=== PATIENT | female | born 2000 | race Caucasian/White ===

== ENCOUNTER 2021-12-16 20:22 | Emergency (ER) | payer OTHER | END 2021-12-16 21:44 | disposition home or self-care (01) | LOC: CSHERS 20:22 | DX: O20.9 Hemorrhage in early pregnancy, unspecified (principal); O99.331 Smoking (tobacco) complicating pregnancy, first trimester; F17.210 Nicotine dependence, cigarettes, uncomplicated; Z3A.01 Less than 8 weeks gestation of pregnancy | CPT/HCPCS: 76856 ==

== ENCOUNTER 2022-02-01 18:03 | Emergency (ER) | payer BC, OTHER ==
[2022-02-01 20:27] LABS: #Monocytes 0.6 10x3/uL (0.0-1.1); #Neutrophils 7.8 10x3/uL (1.5-8.4); %Basophils 0.4 % (0.0-2.0); %Eosinophils 0.4 % (0.0-6.0); %Lymphocytes 17.6 % (18.0-47.0); %Monocytes 5.5 % (0.0-10.0); %Neutrophils 75.8 % (40.0-75.0); Hemoglobin 12.7 g/dL (12.0-15.5); Mean Corpuscular HGB CONC 35.1 g/dL (32.0-36.0); Mean Corpuscular Hemoglobin 30.7 pg (27.0-33.0); Mean Corpuscular Volume 87.4 fl (81.6-98.3); Mean Platelet Volume 9.4 fl (7.4-10.4); Platelet Count 197 10x3/uL (150-450); Red Blood Cell (RBC) Count 4.14 10x6/uL (3.90-5.03); White Blood Cell (WBC) Count 10.2 10x3/uL (3.5-10.5)
[2022-02-01 21:02] LABS: Bilirubin Neg (Negative); Blood, Urine 10 (Negative); Clarity Cloudy (Clear); Glucose, Urine (Dipstick) Normal (Negative); Ketone, Urine Negative (Negative); Leukocyte 25 (Negative); Nitrite Negative (Negative); Protein, Urine (Dipstick) 15 mg/dl (Neg-Trace)
[2022-02-01 21:14] LABS: RBC/HPF None Seen HPF (0-3); WBC/HPF 0-3 HPF (0-3)
[2022-02-01 21:15] LABS: Bacteria/HPF None Seen HPF (None Seen)
[2022-02-03 11:22] LABS: Chlamydia by PCR Not Detected (NotDetected); GC by PCR Not Detected (NotDetected)
== END 2022-02-01 21:30 | disposition home or self-care (01) ==
LOC: CSHERS 18:03
DX: O99.891 Other specified diseases and conditions complicating pregnancy (principal); R10.2 Pelvic and perineal pain; O99.331 Smoking (tobacco) complicating pregnancy, first trimester; F17.210 Nicotine dependence, cigarettes, uncomplicated; Z3A.12 12 weeks gestation of pregnancy
CPT/HCPCS: 76856; 81003; 81015; 84702; 85025; 86900; 86901; 87086; 87480; 87491; 87510; 87591; 87660; 93976

== ENCOUNTER 2022-02-07 14:04 | Emergency (ER) | payer OTHER, SELFPAY | END 2022-02-07 19:04 | disposition home or self-care (01) | LOC: CSHERS 14:04 | DX: O20.0 Threatened abortion (principal); O99.331 Smoking (tobacco) complicating pregnancy, first trimester; F17.210 Nicotine dependence, cigarettes, uncomplicated; Z3A.13 13 weeks gestation of pregnancy | CPT/HCPCS: 76856 ==

== ENCOUNTER 2022-02-10 18:19 | Emergency (ER) | payer MEDICAID, SELFPAY | END 2022-02-10 21:19 | disposition home or self-care (01) | LOC: CSHERS 18:19 | DX: O20.0 Threatened abortion (principal); O99.012 Anemia complicating pregnancy, second trimester; O99.332 Smoking (tobacco) complicating pregnancy, second trimester; F17.210 Nicotine dependence, cigarettes, uncomplicated; Z87.19 Personal history of other diseases of the digestive system | CPT/HCPCS: 76856 ==

== ENCOUNTER 2022-06-11 17:43 | Day surgery (SDC) | payer OTHER ==
[2022-06-11] MEDS ORDERED: hydrALAZINE 20 MG/ML VIAL SLOW IVP PRN (18:58)
[2022-06-11 19:08] VITALS: BMI 30.3
[2022-06-11 19:30] LABS: Bilirubin Neg (Negative); Blood, Urine Negative (Negative); Clarity Clear (Clear); Glucose, Urine (Dipstick) Normal (Negative); Ketone, Urine Negative (Negative); Leukocyte 100 (Negative); Nitrite Negative (Negative); Protein, Urine (Dipstick) Negative (Neg-Trace)
[2022-06-11 19:53] LABS: Fetal Membranes Rupture No Membranes Rupture (No Rupture)
[2022-06-11 19:56] LABS: Bacteria/HPF Rare-Few HPF (None Seen); RBC/HPF 0-3 HPF (0-3); Squamous Epithelial 0-3 HPF (0-3)
[2022-06-11] MEDS ORDERED: Lactated Ringer's 1,000 ML IV SCH (20:30)
[2022-06-12] MEDS ORDERED: metroNIDAZOLE 500 MG TAB PO SCH (09:00)
== END 2022-06-11 23:40 | disposition home or self-care (01) ==
LOC: CSHLD/OP 17:43
PROVIDERS: ATTEND Family Medicine
DX: O23.593 Infection of other part of genital tract in pregnancy, third trimester (principal); B96.89 Other specified bacterial agents as the cause of diseases classified elsewhere; O98.813 Other maternal infectious and parasitic diseases complicating pregnancy, third trimester; B37.31 Acute candidiasis of vulva and vagina; Z3A.32 32 weeks gestation of pregnancy; Z88.0 Allergy status to penicillin; Z88.8 Allergy status to other drugs, medicaments and biological substances; Z98.890 Other specified postprocedural states
CPT/HCPCS: 81003; 81015; 84112; 87480; 87510; 87660; 96360; 96361; 99285

== ENCOUNTER 2022-07-17 13:35 | Inpatient (IN) | payer OTHER ==
[2022-07-17] MEDS ORDERED: Famotidine/PF 20 mg/2ml Vial ONE (14:25)
[2022-07-17] MEDS ORDERED: Famotidine/PF 20 mg/2ml Vial SLOW IVP PRN (14:26)
[2022-07-17] MEDS ORDERED: Lactated Ringer's 1,000 ML IV SCH (14:26)
[2022-07-17] MEDS ORDERED: Bicitra 30 ML UDCUP PO PRN (14:26)
[2022-07-17] MEDS ORDERED: hydrALAZINE 20 MG/ML VIAL SLOW IVP PRN ×2 (14:26→19:01)
[2022-07-17] MEDS ORDERED: CEFAZOLIN 2 GM in Sodium Chloride 0.9% 100 ML IVPB SCH (14:26)
[2022-07-17] MEDS ORDERED: Azithromycin 500 MG in Sodium Chloride 0.9% 250 ML 250 ML IVPB SCH (14:26)
[2022-07-17] MEDS ORDERED: Ondansetron PF 4 MG/2 ML Vial IVP PRN ×2 (14:26→15:48)
[2022-07-17] MEDS ORDERED: Promethazine HCl 25 MG/ML VIAL IM PRN ×3 (14:26→19:01)
[2022-07-17 14:28] VITALS: BMI 31.4
[2022-07-17 14:33] LABS: Hemoglobin 11.7 g/dL (12.0-15.5); Mean Corpuscular HGB CONC 35.1 g/dL (32.0-36.0); Mean Corpuscular Hemoglobin 30.2 pg (27.0-33.0); Mean Platelet Volume 9.7 fl (7.4-10.4); Platelet Count 268 10x3/uL (150-450); Red Blood Cell (RBC) Count 3.87 10x6/uL (3.90-5.03); White Blood Cell (WBC) Count 13.6 10x3/uL (3.5-10.5)
[2022-07-17] MEDS ORDERED: CEFAZOLIN 2 GM VIAL ONE (14:33)
[2022-07-17 14:56] LABS: Amphetamine Not Detected (NotDetected); Barbiturates Screen Not Detected (NotDetected); Benzodiazepine Screen Not Detected (NotDetected); Cocaine Metabolite Screen Not Detected (NotDetected); Methadone Not Detected (NotDetected); Methamphetamine Not Detected (NotDetected); Opiate Screen Not Detected (NotDetected); Oxycodone Screen Not Detected (NotDetected); Phencyclidine (PCP) Not Detected (NotDetected); THC/Cannabinoid Screen Detected (NotDetected); Tricyclic Screen Not Detected (NotDetected)
[2022-07-17 15:05] LABS: Syphilis Antibody Nonreactive (Nonreactive); Syphilis Antibody Index 0.03 S/CO (<1.00 Non-Reactive)
[2022-07-17 15:07] LABS: HBSAg Index 0.17 S/CO (0-0.99); Hep B Surf Ag Non-Reactive S/CO (NonReactive)
[2022-07-17] MEDS ORDERED: diphenhydrAMINE 50 MG/ML VIAL IVP PRN (15:48)
[2022-07-17] MEDS ORDERED: Meperidine HCl/PF 25 MG/ML VIAL SLOW IVP PRN (15:48)
[2022-07-17] MEDS ORDERED: Moisturizing Cream (Eucerin) 113 GM JAR TOP PRN (15:48)
[2022-07-17] MEDS ORDERED: Naloxone HCl 0.4 mg/ml Vial IV PRN (15:48)
[2022-07-17] MEDS ORDERED: Promethazine HCl 25 MG SUPP PR PRN (15:48)
[2022-07-17] MEDS ORDERED: Naloxone HCl 0.4 mg/ml Vial IVP PRN ×2 (15:48)
[2022-07-17] MEDS ORDERED: Ondansetron HCl/PF 4 MG/2 ML Vial IVP PRN (15:48)
[2022-07-17] MEDS ORDERED: Fentanyl 100 MCG/2 ML VIAL SLOW IVP PRN (15:48)
[2022-07-17] MEDS ORDERED: Communication Order-Pharmacy FS SCH (16:00)
[2022-07-17] MEDS: Nicotine 7 MG PATCH TD SCH (17:26)
[2022-07-17] MEDS ORDERED: diphenhydrAMINE 25 MG CAP PO PRN (19:01)
[2022-07-17] MEDS ORDERED: Lanolin Ointment 7 GM TUBE TOP PRN (19:01)
[2022-07-17] MEDS ORDERED: Bisacodyl 10 MG SUPP PR PRN (19:01)
[2022-07-17] MEDS ORDERED: Boostrix 0.5 ML (Tdap) VIAL (>/=7 yrs of age) IM ONE (19:01)
[2022-07-17] MEDS ORDERED: Ketorolac Tromethamine 30 MG/ML VIAL IVP SCH (22:00)
[2022-07-17] MEDS: Ferrous Sulfate 325 MG TAB PO SCH (22:42)
[2022-07-17] MEDS: Docusate 100 MG CAP PO SCH (22:42)
[2022-07-18] MEDS: Ketorolac Tromethamine 30 MG/ML VIAL IVP SCH ×2 (00:41→06:28)
[2022-07-18 03:28] LABS: Hemoglobin 9.3 g/dL (12.0-15.5); Mean Corpuscular HGB CONC 34.4 g/dL (32.0-36.0); Mean Corpuscular Hemoglobin 30.2 pg (27.0-33.0); Mean Corpuscular Volume 87.7 fl (81.6-98.3); Mean Platelet Volume 9.7 fl (7.4-10.4); Platelet Count 208 10x3/uL (150-450); RBC Distribution Width 11.9 % (11.5-14.5); Red Blood Cell (RBC) Count 3.08 10x6/uL (3.90-5.03)
[2022-07-18] MEDS: Ferrous Sulfate 325 MG TAB PO SCH ×2 (07:34→23:24)
[2022-07-18] MEDS: HYDROcodone/Acetaminophen 5/325 mg Tablet PO PRN ×4 (07:34→23:24)
[2022-07-18] MEDS: Docusate 100 MG CAP PO SCH ×2 (07:34→23:24)
[2022-07-18] MEDS: Prenatal Vitamin 1 TAB PO SCH (07:34)
[2022-07-18] MEDS: Ibuprofen 800 MG TAB PO SCH ×2 (13:29→23:21)
[2022-07-18] MEDS: Nicotine 7 MG PATCH TD SCH (16:58)
[2022-07-19] MEDS: HYDROcodone/Acetaminophen 5/325 mg Tablet PO PRN ×4 (05:12→21:35)
[2022-07-19] MEDS: Ibuprofen 800 MG TAB PO SCH ×3 (05:13→21:35)
[2022-07-19] MEDS: Prenatal Vitamin 1 TAB PO SCH (09:56)
[2022-07-19] MEDS: Ferrous Sulfate 325 MG TAB PO SCH ×2 (09:56→21:35)
[2022-07-19] MEDS: Docusate 100 MG CAP PO SCH ×2 (09:56→21:33)
[2022-07-19] MEDS: Nicotine 7 MG PATCH TD SCH (16:49)
[2022-07-19] MEDS: Simethicone Chewable 80 MG TAB PO PRN (22:47)
[2022-07-20] MEDS: HYDROcodone/Acetaminophen 5/325 mg Tablet PO PRN ×3 (05:29→14:13)
[2022-07-20] MEDS: Ibuprofen 800 MG TAB PO SCH ×3 (05:29→21:45)
[2022-07-20] MEDS: Simethicone Chewable 80 MG TAB PO PRN ×2 (05:30→17:11)
[2022-07-20] MEDS: Prenatal Vitamin 1 TAB PO SCH (08:39)
[2022-07-20] MEDS: Ferrous Sulfate 325 MG TAB PO SCH ×2 (08:39→21:45)
[2022-07-20] MEDS: Docusate 100 MG CAP PO SCH ×2 (08:39→21:45)
[2022-07-20] MEDS: Nicotine 7 MG PATCH TD SCH (17:11)
[2022-07-21] MEDS: Ibuprofen 800 MG TAB PO SCH (05:19)
[2022-07-21] MEDS: Simethicone Chewable 80 MG TAB PO PRN (05:23)
[2022-07-21 07:35] VITALS: BP 121/61; TEMP 98.1
[2022-07-21] MEDS: Prenatal Vitamin 1 TAB PO SCH (08:19)
[2022-07-21] MEDS: HYDROcodone/Acetaminophen 5/325 mg Tablet PO PRN ×2 (08:19→12:17)
[2022-07-21] MEDS: Ferrous Sulfate 325 MG TAB PO SCH (08:19)
[2022-07-21] MEDS: Docusate 100 MG CAP PO SCH (08:19)
== END 2022-07-21 12:25 | disposition home or self-care (01) | DRG 787 ==
LOC: CSHLD 13:35 → CSHPP 18:30
PROVIDERS: ADMIT Family Medicine; ATTEND Family Medicine
PROC: 10D00Z1 Extraction of Products of Conception, Low, Open Approach (ICD-10-PCS; principal; 2022-07-17)
DX: O42.02 Full-term premature rupture of membranes, onset of labor within 24 hours of rupture (principal); O98.52 Other viral diseases complicating childbirth; O32.1XX0 Maternal care for breech presentation, not applicable or unspecified; Z3A.37 37 weeks gestation of pregnancy; Z37.0 Single live birth; B00.9 Herpesviral infection, unspecified; O99.824 Streptococcus B carrier state complicating childbirth; O34.211 Maternal care for low transverse scar from previous cesarean delivery; Z79.899 Other long term (current) drug therapy; F31.9 Bipolar disorder, unspecified; O99.344 Other mental disorders complicating childbirth; D64.9 Anemia, unspecified; O99.02 Anemia complicating childbirth
CPT/HCPCS: 36415; 51702; 80306; 85027; 86780; 86850; 86900; 86901; 87340; J1200; J1885; J2310; S0028